=== PATIENT | female | born 1975 | race Caucasian/White ===

== ENCOUNTER 2019-01-05 14:03 | Emergency (ER) | payer MEDICARE, MEDICAID ==
[~2019-01-05] VITALS: Ht 172.7 cm; Wt 79.4 kg
--- NOTE | 2019-01-05 14:21 | NUR ---
BIB SELF W C/O ABD PAIN WITH DIARRHEA, NAUSEA VOMITING x 2 DAYS, HOOKED TO MONITOR, CHANGED TO GOWN, AWAITING MD JONES
--- NOTE | 2019-01-05 14:40 | NUR ---
BELINDA GALAVIZ AT BEDSIDE
[2019-01-05] MEDS ORDERED: ONDANSETRON HCL/PF 4 MG/2 ML VIAL IVP ONE (15:00)
[2019-01-05] MEDS ORDERED: IV NS 0.9% 1,000 ML BAG IV ONE (15:00)
[2019-01-05] MEDS ORDERED: ONDANSETRON HCL/PF 4 MG/2 ML VIAL ONE (15:02)
[2019-01-05 15:08] LABS: BASOPHILS # (AUTO) 0.1 /CMM (0.0-0.2); BASOPHILS % (AUTO) 0.8 % (0.0-2.0); EOSINOPHILS % (AUTO) 1.6 % (0.0-6.0); HEMATOCRIT 39 % (33-45); HEMOGLOBIN 12.9 g/dL (11.5-14.8); LYMPHOCYTES # (AUTO) 1.8 /CMM (0.8-4.8); LYMPHOCYTES % (AUTO) 24.8 % (20.0-44.0); MEAN CORPUSCULAR HGB CONC 33 g/dl (31.0-36.0); MEAN CORPUSCULAR VOLUME 92 fL (82-100); MONOCYTES # (AUTO) 0.5 /CMM (0.1-1.30); MONOCYTES % (AUTO) 6.8 % (2.0-12.0); NEUTROPHILS # (AUTO) 4.9 /CMM (1.8-8.9); PLATELET COUNT (AUTO) 274 /CMM (150-450); RED BLOOD CELL COUNT(AUTO) 4.29 MIL/uL (4.0-5.2); WHITE BLOOD COUNT (AUTO) 7.4 K/uL (4.3-11.0)
[2019-01-05 15:11] LABS: APPEARANCE,URINE Slightly Cloudy (CLEAR); BILIRUBIN,URINE Negative (NEGATIVE); BLOOD, URINE Trace-lysed Ery/uL (NEGATIVE); COLOR,URINE Yellow (YELLOW); KETONES,URINE Negative (NEGATIVE); LEUKOCYTE ESTERASE ,URINE Small (NEGATIVE); NITRITE, URINE Negative (NEGATIVE); PH,URINE 5.5 (5.0-8.0); PROTEIN,URINE Negative (NEGATIVE); UGLUCOSE Negative (NEGATIVE); UROBILINOGEN,URINE 0.2 EU/dL (0.2)
[2019-01-05 15:22] LABS: CALCIUM, SERUM 8.9 mg/dL (8.5-10.1); CREATININE 0.8 mg/dL (0.6-1.3); POTASSIUM 3.9 mmol/L (3.5-5.1)
[2019-01-05 15:29] LABS: ALBUMIN 3.6 g/dL (3.4-5.0); BILIRUBIN,DIRECT 0.1 mg/dL (0.0-0.2); BILIRUBIN,TOTAL 0.3 mg/dL (0.2-1.0); TOTAL PROTEIN, SERUM 7.5 g/dL (6.4-8.2)
[2019-01-05 15:54] LABS: BACTERIA,URINE Moderate /HPF (None Seen); CALCIUM OXALATE CRYSTALS,UR Moderate /HPF (None Seen); SQUAMOUS EPITHELIAL CELL,UR Many /HPF (None Seen)
--- NOTE | 2019-01-05 16:22 | NUR ---
IV removed. Catheter intact and site benign. Pressure and 4x4 applied to site. No bleeding noted. Patient discharged to home in stable condition. Written and verbal after care instructions given. Patient verbalizes understanding of instruction.
[2019-01-05 16:30] VITALS: BP 142/76
== END 2019-01-05 16:20 | disposition home or self-care (01) ==
LOC: ER 14:14
DX: N39.0 Urinary tract infection, site not specified (principal); K52.9 Noninfective gastroenteritis and colitis, unspecified; R11.2 Nausea with vomiting, unspecified; F41.9 Anxiety disorder, unspecified; F17.200 Nicotine dependence, unspecified, uncomplicated
CPT/HCPCS: 36415; 80048; 80076; 81001; 83690; 84703; 85025; 87077; 87086; 96361; 96374; 99283; 99406; A4606; J2405; J7030; 81000-TC

== ENCOUNTER 2019-03-29 13:58 | Emergency (ER) | payer MEDICARE, MEDICAID ==
[~2019-03-29] VITALS: Ht 167.6 cm; Wt 60.8 kg
--- NOTE | 2019-03-29 14:30 | NUR ---
PT PRESENTED TO THE ER WITH A C/O LEFT EYE IRRITATION AND LABIA IRRITATION W/PAIN X [address] GARCIA IS AT THE BEDSIDE EVALUATING THE PT. Female follow up rep accompanied female patient for DR GARCIA.
--- NOTE | 2019-03-29 15:00 | NUR ---
Patient discharged to home in stable condition. Written and verbal after care instructions given. Patient verbalizes understanding of instruction AND RX. PT AMBULATED OUT WITH A STEADY GAIT. VSS. NAD NOTED.
[2019-03-29 15:05] VITALS: BP 134/77
== END 2019-03-29 15:06 | disposition home or self-care (01) ==
LOC: ER 14:01
DX: H00.011 Hordeolum externum right upper eyelid (principal); L73.9 Follicular disorder, unspecified; N90.89 Other specified noninflammatory disorders of vulva and perineum; Z60.2 Problems related to living alone

== ENCOUNTER 2019-05-02 23:01 | Emergency (ER) | payer MEDICARE, MEDICAID ==
[~2019-05-02] VITALS: Ht 170.2 cm; Wt 79.4 kg
[2019-05-02 23:37] VITALS: BP 128/81
--- NOTE | 2019-05-03 00:01 | NUR ---
BIBSELF C/O ITCHING RASH IN VAGINAL AREA. PT ALSO C/O ABSCESS ON BACK X 1 WEEK. DENIES FEVER. PT AAOX4. RESPIRATIONS EVEN AND UNLABORED. VITAL SIGNS STABLE. NO ACUTE DISTRESS NOTED AT THIS TIME.
[2019-05-03] MEDS ORDERED: CEPHALEXIN MONOHYDRATE 500 MG CAPSULE PO ONE ×2 (00:45→01:00)
== END 2019-05-03 00:48 | disposition home or self-care (01) ==
LOC: ER 23:01
DX: L03.116 Cellulitis of left lower limb (principal); B37.9 Candidiasis, unspecified; F31.9 Bipolar disorder, unspecified; Z98.890 Other specified postprocedural states; Z60.2 Problems related to living alone

== ENCOUNTER 2019-10-15 20:25 | Emergency (ER) | payer MEDICARE, OTHER ==
[~2019-10-15] VITALS: Ht 170.2 cm; Wt 90.7 kg
[2019-10-15] MEDS ORDERED: CEFTRIAXONE 1 G VIAL ONE (22:07)
[2019-10-15] MEDS ORDERED: LIDOCAINE /MPF 1% VIAL 5 ML VIAL ONE (22:07)
[2019-10-15] MEDS ORDERED: HYDROCODONE/APAP 5/325MG 1 EACH TABLET ONE (22:07)
[2019-10-15 22:29] VITALS: BP 150/83
[2019-10-15] MEDS ORDERED: CEFTRIAXONE 1 G VIAL IM ONE (22:30)
[2019-10-15] MEDS ORDERED: HYDROCODONE/APAP 5/325MG 1 EACH TABLET PO ONE (22:30)
== END 2019-10-15 22:41 | disposition home or self-care (01) ==
LOC: ER 20:29
DX: S70.362A Insect bite (nonvenomous), left thigh, initial encounter (principal); L03.116 Cellulitis of left lower limb; F31.9 Bipolar disorder, unspecified; Z98.890 Other specified postprocedural states; Z60.2 Problems related to living alone; W57.XXXA Bitten or stung by nonvenomous insect and other nonvenomous arthropods, initial encounter; Y93.89 Activity, other specified; Y92.89 Other specified places as the place of occurrence of the external cause; Y99.8 Other external cause status
CPT/HCPCS: 96372; 99283; J0696; J3490

== ENCOUNTER 2021-08-25 04:06 | Emergency (ER) | payer MEDICARE, OTHER ==
[~2021-08-25] VITALS: Ht 170.2 cm; Wt 77.1 kg
--- NOTE | 2021-08-25 04:23 | NUR ---
CALLED FOR TRIAGE, NOT IN WAITING ROOM
--- NOTE | 2021-08-25 05:58 | NUR ---
BIBSELF C/O COUGH X1 WEEK, BUMP ON HEAD FROM HITTING HEAD ON DOOR, +RASH X1 MONTH. PT A/OX4. TOLERATING R/A WELL
--- NOTE | 2021-08-25 06:32 | NUR ---
COVID SWAB COLLECTED VIA CRITICAL CARE TECHNICIAN AND SENT TO LAB
[2021-08-25] MEDS ORDERED: LORATADINE 10 MG TABLET ONE (06:35)
[2021-08-25] MEDS ORDERED: predniSONE 20 MG TABLET PO ONE (07:00)
[2021-08-25] MEDS ORDERED: predniSONE 20 MG TABLET ONE (07:16)
[2021-08-25] MEDS ORDERED: PRED20TA PO ×2 (07:19→07:20)
--- NOTE | 2021-08-25 07:22 | NUR ---
Patient discharged to home in stable condition. RX Written and verbal after care instructions given. Patient verbalizes understanding of instruction. PT ambulatory with a steady gait
[2021-08-25 07:24] VITALS: BP 125/61
[2021-08-25] MEDS ORDERED: LORATADINE 10 MG TABLET PO SCH (09:00)
== END 2021-08-25 07:24 | disposition home or self-care (01) ==
LOC: ER 04:11
DX: R21 Rash and other nonspecific skin eruption (principal); Z20.822 Contact with and (suspected) exposure to COVID-19; F31.9 Bipolar disorder, unspecified
CPT/HCPCS: 71045; 87426; 99284; J7512; C9803; U0003